=== PATIENT | female | born 1970 | race African-American/Black ===

== ENCOUNTER 2016-11-29 01:19 | Emergency (ER) | payer OTHER ==
--- NOTE | ~2016-11-29 | CR151 ---
[facility]. [facility] A Service of [facility] & [facility] RADIOLOGY TEXT RESULTS PATIENT: DEEPIKA MENDOZA LOCATION: SED : 70 UNIT #: [id number] AGE: [address]: Carlos King MD SEX: F ORDER DR: [id number] [place] [id number] E MR#: [id number] Acc #: [id number] NAME: DEEPIKA MENDOZA : 1970 SEX: F STUDY DATE/TIME: 11/29/2016 03:33 UNIT: SED ROOM: STUDY DESCRIPTION: CR Hip Min 2 Views Rt Attending Physician: Carlos King M.D. Ordering Physician: Carlos King M.D. Primary Care Physician: Ruth Toth M.D. MEDICAL IMAGING REPORT This report is preliminary unless electronic signature is present. EXAM Right hip and pelvis 11/29/2016 03:33 INDICATION Acute onset pain in the right hip for the last 2 days. No trauma. FINDINGS AP pelvis was obtained in addition to a frog-leg right hip. No comparison. No fracture or malalignment is seen. There is bilateral axial joint space narrowing in the hips with some acetabular spurring compatible with osteoarthritis. Femoral heads are normal without evidence of osteonecrosis. IMPRESSION Bilateral hip osteoarthritis. No acute findings. Dictated by... Pb Pérez Jr., M.D. THIS IS AN ELECTRONICALLY VERIFIED REPORT Pb Pérez Jr., M.D. at 11/29/2016 9:14 PM PRINCESS/jean-pierre TD: 11/29/2016 11:49 JOB #: [id number] MEDICAL IMAGING REPORT Page 1 of 1
[~2016-11-29 01:19] MED LIST: ALBUTEROL17 G1 IH; ALBUTEROL17 GM INH; ALKA-SELTZER P1 EA11; ANTIVERT PO; ASPIRIN81 M2 PO; BENADRYL PO; BENZONATATE PO; CLARITIN10 M3 PO; EPIPEN0.3 MG/0.1 IM; IBUPROFEN800 MG PO; LEVAQUIN750 MG PO; MECLIZINE HCL25 M1 PO; NAPROSYN500 MG PO; NO MEDICATIONS; NORCO 7.5-3251 EACH PO; NORFLEX100 M1 PO; PHENTERMINE H37.5 M1 PO; PREDNISONE PO; ROBITUSSIN A-C-S1 ML PO; VOLTAREN75 MG PO; ZITHROMAX PO; ZOFRAN ODT4 MG PO
[2016-11-29] MEDS ORDERED: HYDROCODON-ACE1 EAC7 PO (01:39)
[2016-11-29] MEDS ORDERED: FLEXERIL PO (01:39)
[2016-11-29] MEDS ORDERED: IBUPROFEN800 MG PO (01:40)
== END 2016-11-29 05:27 | disposition home or self-care (01) ==
LOC: SED 01:19
DX: M13.852 Other specified arthritis, left hip (principal); Z88.0 Allergy status to penicillin; Z79.899 Other long term (current) drug therapy
CPT/HCPCS: 73502; 99283